=== PATIENT | male | born 1990 | race Caucasian/White ===

== ENCOUNTER 2018-06-04 13:34 | Emergency (ER) | payer BC, OTHER ==
[2018-06-04] MEDS ORDERED: Silver Sulfadiazine 1% Crm 50 GM Tube TOP ONE (13:48)
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
== END 2018-06-04 14:13 | disposition home or self-care (01) ==
LOC: MW.ED 13:34
DX: T23.272A Burn of second degree of left wrist, initial encounter (principal); T23.171A Burn of first degree of right wrist, initial encounter
CPT/HCPCS: 16020; 99283; A9270